=== PATIENT | female | born 1955 | race Caucasian/White ===

== ENCOUNTER → 2016-10-19 | Outpatient (CLI) | payer BC ==
[~2016-10-19] MED LIST: ACET-24 PO; ASPEC325 PO; MORP-157 PO; OXYC-57 PO; RXC5 PO
== END | disposition home or self-care (01) ==
LOC: C.PATHSPEC 12:35
PROVIDERS: ATTEND Plastic Surgery
DX: C44.90 Unspecified malignant neoplasm of skin, unspecified (principal)

== ENCOUNTER 2016-11-01 10:37 | Inpatient (IN) | payer BC ==
[2016-10-05 15:24] VITALS: BMI 32.0
[2016-10-05 16:26] LABS: BASO % 0.7 %; BASO ABS # 0.04 K/uL (0-0.2); COMPLETE YES; EOS % 2.1 %; HEMATOCRIT 38.4 % (37-47); IG% 0.2 %; LYMPH % 34.5 %; MEAN CELL VOLUME 93.4 fL (80-100); MEAN CORPUSCULAR HEMOGLOBIN 31.1 pg (25-34); MEAN CORPUSCULAR HGB CONC 33.3 g/dl (32-36); MEAN PLATELET VOLUME 9.7 fL (7.4-10.4); MONO % 8.6 %; NEUT % 53.9 %; PLATELET COUNT 181 K/uL (130-400); RED BLOOD COUNT 4.11 M/uL (4.2-5.4); WHITE BLOOD COUNT 5.79 K/uL (4.8-10.8)
[2016-10-05 16:34] LABS: BUN/CREATININE RATIO 22.8 (10-20); CALCIUM 8.7 mg/dl (8.5-10.1); CREATININE 0.76 mg/dl (0.60-1.20)
--- NOTE | 2016-10-05 16:37 | DIAGNOSTIC IMAGING REPORT ---
CHEST 2 VIEWS ROUTINE HISTORY: Preop. COMPARISON: Chest 12/08/2011. FINDINGS: The lungs are clear. Cardiac silhouette is normal in size. No pleural effusions. No pneumothorax. Right upper quadrant surgical clips consistent with a prior cholecystectomy. IMPRESSION: No acute process. Electronically signed by: Roly Casillas M.D. 10/05/2016 4:36 PM Dictated Date/Time: 10/05/2016 4:33 PM
[2016-10-05 16:49] LABS: PROTHROMBIN TIME (PATIENT) 11.1 SECONDS (9.0-12.0)
--- NOTE | 2016-10-27 10:24 | History and Physical ---
History & Physical Documentation Date Oct 27, 2016. Chief Complaint Left knee pain HPI (Knee Pain) Pain Location: Anterior knee, Lateral knee, Posterior knee Duration: Years Adversely Affecting: ADL's, Recreation Symptoms Include: + Pain, + Giving way History of Injury/Trauma: Yes ([place] accident) Non-Surgical Therapies: Behavior modification Mechanical Assistive Devices: none Joint Injection: Steroid Past Medical/Surgical History 1. Mild Obesity 2. Arthritis 3. Basal Cell skin cancer 4. Right eye surgery. Additional History Hepatic Disease: No Endocrine Disorder: No Kidney Disease: No Hypertension: No Heart Disease: No Bleeding Tendencies: No Infectious Diseases: No Family History No Heart disease, No Pulmonary disease, No Anesthesia difficulties, No Bleeding tendencies Social History Smoking Status: Former Smoker Alcohol Use: socially Drug Use: none Marital Status: Occupational Status: employed Allergies Coded Allergies: No Known Allergies (Unverified , 10/05/16) Home Medications No Active Prescriptions or Reported Meds Review of Systems Constitutional: No fever, No chills, No sweats, No weight loss, No weakness, No fatigue, No problem reported ENT: No hearing loss, No unusual epistaxis, No nasal symptoms, No sore throat, No tinnitus, No dental problems, No trouble swallowing, No problem reported Respiratory: No cough, No sputum, No wheezing, No shortness of breath, No dyspnea on exertion, No dyspnea at rest, No hemoptysis, No problem reported Cardiovascular: No chest pain, No orthopnea, No PND, No edema, No claudication , No palpitations, No problem reported Abdomen: No pain, No nausea, No vomiting, No diarrhea, No constipation, No GI bleeding, No problem reported Neurologic: No memory loss, No paralysis, No weakness, No numbness/tingling, No vertigo, No balance problems, No problem reported Physical Exam Skin: warm/dry Eyes: normal inspection ENT: normal ENT inspection Head: normocephalic Neck: supple, no adenopathy Respiratory/Chest: lungs clear Cardiovascular: regular rate, rhythm Abdomen / GI: normal bowel sounds Back: normal inspection Neurovascular: Normal perfusion, Normal sensation, Normal motor strength Neurologic/Psych: no motor/sensory deficits Physical Exam (Knee) Inspection: + Effusion Gait: + Limp Range of Motion: With crepitation (5-100 degrees) Alignment: + Genu valgum Tenderness: Lateral joint line Radiology Plain Films: Osteophytes, Subchondral sclerosis Plain Films Joint Space: [id number], Mild narrowing, Severe narrowing Diagnosis & Plan Diagnosis & Plan (1) Severe Left Knee DJD Plan: TKA (Left TKR)
[2016-11-01] VITALS (7 sets, daily range): BP systolic 105–149; BP diastolic 68–84; PULSE 55–61; TEMP 36.3–36.6; O2SAT 96–100; Ht 177.8 cm; Wt 101.4 kg
[~2016-11-01] VITALS: Ht 177.8 cm; Wt 101.4 kg
[~2016-11-01 10:37] MED LIST changes: -ACET-24 PO; +ACETAMINOPHEN 500 MG TAB PO SCH; -ASPEC325 PO; +BUPIVACAINE 0.5 % 5 MG/1 ML PF 10ML VIAL ONE; +BUPIVACAINE LIPOSOME 266 MG, BUPIVACAINE/EPINEPHRINE INJ 50 ML, SODIUM CHLORIDE 0.9% PF... INFIL SCH; +CEFAZOLIN 2000 MG/60 ML D5W 60 ML IV SCH; +FAMOTIDINE 20 MG TAB PO SCH; +GABAPENTIN 300 MG CAP PO SCH; +LACTATED RINGER'S 1000ML 1,000 ML IV SCH; +LACTATED RINGER'S 1000ML 500 ML IV ONE; +LACTATED RINGER'S 1000ML IV SCH; +METOCLOPRAMIDE HCL 10 MG TAB PO SCH; -MORP-157 PO; -OXYC-57 PO; +ROPIVACAINE 0.5% 5 MG/ML 30 ML VIAL ONE; -RXC5 PO; +TRANEXAMIC ACID INJ 1,000 MG in SODIUM CHLORIDE 0.9% 100ML 100 ML IV SCH
--- NOTE | 2016-11-01 11:17 | History & Physical Bridge Note ---
H&P Re-Evaluation Bridge Note: I have examined the patient, reviewed the History & Physical and in the interval since the performance of the History & Physical I have noted the following changes of clinical significance: No changes noted
[2016-11-01] MEDS ORDERED: OXYC-57 PO (11:18)
[2016-11-01] MEDS: SCOPOLAMINE 1.5 MG TDSY TD SCH ×2 (11:44→12:11)
[2016-11-01] MEDS ORDERED: PROPOFOL IV EMULSION 10 MG/ML 20 ML VIAL IV ONE (11:52)
[2016-11-01] MEDS ORDERED: ONDANSETRON INJ 2 MG/ML 2 ML VIAL ONE (11:53)
[2016-11-01] MEDS ORDERED: FENTANYL CITRATE INJ 50 MCG/1 ML 2 ML VIAL ONE (11:53)
[2016-11-01] MEDS ORDERED: MIDAZOLAM HCL 1 MG/ML 2ML VIAL ONE ×2 (11:53→13:49)
[2016-11-01] MEDS ORDERED: BUPIVACAINE LIPOSOME 1/3% 266 MG/20 ML VIAL INFIL ONE (13:19)
[2016-11-01] MEDS ORDERED: SODIUM CHLORIDE 0.9% PF 50 ML VIAL ONE (13:19)
[2016-11-01] MEDS ORDERED: BACITRACIN 50000 UNIT VIAL ONE (13:19)
[2016-11-01] MEDS ORDERED: BUPIVACAINE/EPINEPHRINE 0.25% 1:200,000 30 ML VIAL ONE (13:19)
--- NOTE | 2016-11-01 15:36 | [facility] Post Operative Brief Note ---
Immediate Operative Summary Operative Date Nov 01, 2016. Pre-Operative Diagnosis Severe left knee degenerative joint disease Post-Operative Diagnosis Same as preoperative diagnosis Procedure(s) Performed Left Total Knee Arthroplasty Surgeon Dr. Jass Herrera Continuing Education Dean Surgeon(s) Anoop Nieves PA-C Estimated Blood Loss 50 mL Findings Left Knee DJD Fluids (cc crystalloids) 1800 cc Specimens Permanent specimens A: Left knee bone and tissue Drains None Anesthesia Spinal Complication(s) None Disposition Recovery Room / PACU
[2016-11-01] MEDS ORDERED: ONDANSETRON INJ 2 MG/ML 2 ML VIAL IV PRN (15:45)
[2016-11-01] MEDS ORDERED: METOCLOPRAMIDE HCL INJ 5 MG/ML 2 ML VIAL IV PRN (15:45)
[2016-11-01] MEDS ORDERED: ALUMINUM/MAGNESIUM/SIMETH (MAALOX MAX) 30 ML UDC PO PRN (15:45)
[2016-11-01] MEDS ORDERED: MoRPHine SULFATE 2 MG/ML CARP IV PRN (15:45)
[2016-11-01] MEDS ORDERED: ZOLPIDEM TARTRATE 5 MG TAB PO PRN (15:45)
[2016-11-01] MEDS ORDERED: MAGNESIUM HYDROXIDE SUSP 30 ML UDC PO PRN (15:45)
[2016-11-01] MEDS ORDERED: DiphenhydrAMINE HCL 50 MG/ML VIAL IV PRN (15:45)
[2016-11-01] MEDS ORDERED: SILVER SULFADIAZINE 1% CR 50 GM JAR EXT PRN (15:45)
[2016-11-01] MEDS ORDERED: BISACODYL 10 MG SUPP PR PRN (15:45)
--- NOTE | 2016-11-01 15:59 | Anesthesiology Progress Note ---
Anesthesia Post Op Note Date & Time Nov 01, 2016 at 15:59 Vital Signs Pain Intensity: 0 Vital Signs Past 12 Hours Date Time Temp Pulse Resp B/P (MAP) Pulse Ox O2 Delivery O2 Flow Rate FiO2 11/01/16 15:50 71 16 109/68 98 Nasal Cannula 2 11/01/16 15:41 36.5 63 16 114/67 98 Oxymask 10 11/01/16 11:18 36.4 56 18 131/73 100 Room Air Notes Mental Status: alert / awake / arousable, participated in evaluation Pt Amnestic to Procedure: Yes Nausea / Vomiting: adequately controlled Pain: adequately controlled Airway Patency, RR, SpO2: stable & adequate BP & HR: stable & adequate Hydration State: stable & adequate Anesthetic Complications: no major complications apparent
[2016-11-01] MEDS ORDERED: CHECK SCOPOLAMINE PATCH PLACEMENT SCH (16:00)
--- NOTE | 2016-11-01 16:04 | DIAGNOSTIC IMAGING REPORT ---
LEFT KNEE 1 OR 2 VIEWS ROUTINE CLINICAL HISTORY: Postoperative evaluation. Left knee degenerative joint disease. COMPARISON: Left knee radiographs June 23, 2016. FINDINGS: Alignment of the total left knee arthroplasty is anatomic. There is no fracture or unexpected radiopaque foreign body. Skin palmer are present. IMPRESSION: Expected findings following total left knee arthroplasty. Electronically signed by: Shaun Medrano M.D. 11/01/2016 4:03 PM Dictated Date/Time: 11/01/2016 4:02 PM
[2016-11-01] MEDS ORDERED: NURSING VERBAL MED ORDER ONE (17:45)
[2016-11-01] MEDS: D5W AND 1/2NSS + 20MEQ KCL 1,000 ML IV SCH (18:06)
[2016-11-01] MEDS: FERROUS GLUCONATE 324 MG TAB PO SCH (18:07)
--- NOTE | 2016-11-01 18:21 | Progress Note ---
Orthopedic SOAP Note Subjective Date of Service: Nov 01, 2016. Post OP Day: Post-op Left TKR Reports: feeling well, pain controlled w PO medications Additional Notes: Just starting to feel pain. No chest pain or SOB Objective calves soft nontender, N/V intact, capillary refill less than 2 sec., dressing C /D/I, A&O x3, toes mobile, CMS intact Date Time Temp Pulse Resp B/P (MAP) Pulse Ox O2 Delivery O2 Flow Rate FiO2 11/01/16 17:29 59 18 135/84 (101) 100 Nasal Cannula 11/01/16 16:58 36.3 59 18 143/75 (97) 100 Nasal Cannula 11/01/16 16:25 Nasal Cannula 11/01/16 16:25 Nasal Cannula 2.0 11/01/16 16:25 36.3 55 18 149/84 (105) 99 Nasal Cannula 2.0 11/01/16 16:10 54 16 142/76 99 Nasal Cannula 2 11/01/16 16:00 36.4 53 16 130/76 99 Nasal Cannula 2 11/01/16 15:50 71 16 109/68 98 Nasal Cannula 2 11/01/16 15:41 36.5 63 16 114/67 98 Oxymask 10 11/01/16 11:18 36.4 56 18 131/73 100 Room Air Additional Notes: X-ray from the recovery room shows well aligned TKR. No complications. Assessment Post-op from Left TKR with significant lateral and posterolateral release. Pain controlled. She is N/V intact. Peroneal nerve is working normally. Plan 1) DVT Prophylaxis - TEDs + SCDs + ECASA 2) PT/OT - Left TKR Protocol 3) IV Antibiotics X 24 hours 4) Pain control - doing well with current regimine 5) Disposition - plan to D/C to home with home health once adequately recovered.
[2016-11-01] MEDS: OXYCODONE HCL IR 5 MG TAB (IMMEDIATE RELEASE) PO PRN ×2 (19:15→23:11)
[2016-11-01] MEDS: DOCUSATE SODIUM 100 MG CAP PO SCH (20:07)
[2016-11-01] MEDS: KETOROLAC TROMETHAMINE 30 MG/ML VIAL IV. SCH (20:07)
[2016-11-01] MEDS: SENNA 8.6 MG TAB PO SCH (20:08)
[2016-11-01] MEDS: ASPIRIN 325 MG ECTAB PO SCH (20:08)
[2016-11-01] MEDS: CEFAZOLIN IV 2,000 MG in DEXTROSE 5% 50ML 50 ML IV SCH (21:08)
[2016-11-01] MEDS: TAPENTADOL ER 50 MG TABCR PO SCH (21:08)
[2016-11-01] MEDS: ACETAMINOPHEN 500 MG TAB PO SCH (21:11)
[2016-11-01] MEDS ORDERED: TRANEXAMIC ACID INJ 1,000 MG in SODIUM CHLORIDE 0.9% 100ML 100 ML IV SCH (22:00)
[2016-11-02] VITALS (7 sets, daily range): BP systolic 94–107; BP diastolic 54–64; PULSE 54–63; TEMP 36.5–36.7; O2SAT 94–100
[2016-11-02] MEDS: D5W AND 1/2NSS + 20MEQ KCL 1,000 ML IV SCH ×3 (01:25→13:40)
[2016-11-02] MEDS: KETOROLAC TROMETHAMINE 30 MG/ML VIAL IV. SCH ×4 (01:56→19:32)
[2016-11-02] MEDS: OXYCODONE HCL IR 5 MG TAB (IMMEDIATE RELEASE) PO PRN ×4 (05:45→19:28)
[2016-11-02] MEDS: ACETAMINOPHEN 500 MG TAB PO SCH ×3 (05:45→22:01)
[2016-11-02] MEDS: CEFAZOLIN IV 2,000 MG in DEXTROSE 5% 50ML 50 ML IV SCH (05:45)
[2016-11-02 07:25] LABS: HEMATOCRIT 33.2 % (37-47); MEAN CELL VOLUME 93.8 fL (80-100); MEAN CORPUSCULAR HEMOGLOBIN 31.4 pg (25-34); MEAN CORPUSCULAR HGB CONC 33.4 g/dl (32-36); MEAN PLATELET VOLUME 9.7 fL (7.4-10.4); PLATELET COUNT 165 K/uL (130-400); RED BLOOD COUNT 3.54 M/uL (4.2-5.4); WHITE BLOOD COUNT 6.87 K/uL (4.8-10.8)
[2016-11-02 07:43] LABS: BUN/CREATININE RATIO 10.4 (10-20); CALCIUM 8.1 mg/dl (8.5-10.1); CREATININE 0.72 mg/dl (0.60-1.20); POTASSIUM 3.9 mmol/L (3.5-5.1)
--- NOTE | 2016-11-02 08:06 | Anesthesiology Progress Note ---
Anesthesia Post Op Note Date & Time Nov 02, 2016 at 08:05 Vital Signs Pain Intensity: 6.0 Vital Signs Past 12 Hours Date Time Temp Pulse Resp B/P (MAP) Pulse Ox O2 Delivery O2 Flow Rate FiO2 11/02/16 03:07 36.5 54 18 97/61 (73) 94 Room Air 11/02/16 00:00 Room Air 11/01/16 22:55 36.6 59 19 105/68 (80) 96 Room Air Notes Mental Status: alert / awake / arousable, participated in evaluation Pt Amnestic to Procedure: Yes Nausea / Vomiting: adequately controlled Pain: adequately controlled Airway Patency, RR, SpO2: stable & adequate BP & HR: stable & adequate Hydration State: stable & adequate Anesthetic Complications: no major complications apparent
--- NOTE | 2016-11-02 08:30 | Progress Note ---
Orthopedic SOAP Note Subjective Date of Service: Nov 02, 2016. Post OP Day: POD #1 - Left TKR Reports: feeling well, pain controlled w PO medications Additional Notes: No chest pain or SOB. Objective calves soft nontender, N/V intact, capillary refill less than 2 sec., dressing C /D/I, A&O x3, toes mobile, CMS intact Date Time Temp Pulse Resp B/P (MAP) Pulse Ox O2 Delivery O2 Flow Rate FiO2 11/02/16 08:13 100 Room Air 11/02/16 08:03 36.6 57 16 96/60 (72) 100 Room Air 11/02/16 07:10 Room Air 11/02/16 03:07 36.5 54 18 97/61 (73) 94 Room Air 11/02/16 00:00 Room Air 11/01/16 22:55 36.6 59 19 105/68 (80) 96 Room Air 11/01/16 19:22 36.3 61 18 123/77 (92) 97 Room Air 11/01/16 18:26 59 18 148/73 (98) 100 11/01/16 17:29 59 18 135/84 (101) 100 Nasal Cannula 11/01/16 16:58 36.3 59 18 143/75 (97) 100 Nasal Cannula 11/01/16 16:25 Nasal Cannula 11/01/16 16:25 Nasal Cannula 2.0 11/01/16 16:25 36.3 55 18 149/84 (105) 99 Nasal Cannula 2.0 11/01/16 16:10 54 16 142/76 99 Nasal Cannula 2 11/01/16 16:00 36.4 53 16 130/76 99 Nasal Cannula 2 11/01/16 15:50 71 16 109/68 98 Nasal Cannula 2 11/01/16 15:41 36.5 63 16 114/67 98 Oxymask 10 11/01/16 11:18 36.4 56 18 131/73 100 Room Air Laboratory Results 24 Hours: Test 11/02/16 07:03 Hematocrit 33.2 % Hemoglobin 11.1 g/dL Assessment Post-op from Left TKR with significant lateral and posterolateral release. Pain controlled. She is N/V intact. Peroneal nerve is working normally. Plan 1) DVT Prophylaxis - TEDs + SCDs + ECASA 2) PT/OT - Left TKR Protocol 3) IV Antibiotics X 24 hours 4) Pain control - doing well with current regimine 5) Disposition - plan to D/C to home with home health once adequately recovered.
[2016-11-02] MEDS ORDERED: ACET-24 PO (08:40)
[2016-11-02] MEDS ORDERED: ASPEC325 PO (08:40)
[2016-11-02] MEDS ORDERED: RXC5 PO (08:40)
[2016-11-02] MEDS ORDERED: MORP-157 PO (08:40)
[2016-11-02] MEDS: ASPIRIN 325 MG ECTAB PO SCH ×2 (08:41→21:17)
[2016-11-02] MEDS: FERROUS GLUCONATE 324 MG TAB PO SCH ×3 (08:41→17:52)
[2016-11-02] MEDS: PANTOprazole SOD 40 MG TAB PO SCH (08:41)
[2016-11-02] MEDS: MULTIVITAMIN TAB PO SCH (08:41)
[2016-11-02] MEDS: DOCUSATE SODIUM 100 MG CAP PO SCH ×2 (08:41→21:17)
--- NOTE | 2016-11-02 08:42 | Discharge Instructions ---
Discharge Instructions Date of Service Nov 02, 2016. Admission Reason for Admission: Left Knee Degenerative Joint Disease Discharge Discharge Diagnosis / Problem: Left Knee Replacement Discharge Goals Goal(s): Decrease discomfort, Improve function, Increase independence, Improve disease control, Therapeutic intervention Activity Recommendations Activity Limitations: per Instructions/Follow-up section Weightbearing Status: Left weightbearing . Instructions / Follow-Up Instructions / Follow-Up ACTIVITY RECOMMENDATIONS: Physical Therapy: * You will go to physical therapy three times each week for four to six weeks after your surgery in order to regain your knee range of motion and to retrain your knee to work properly. * It is just as important to make sure you are getting your knee perfectly straight as it is to regain your knee bend. * Taking a pain pill an hour before therapy can help you have a more productive and comfortable therapy session. Home Exercise: * You were shown a series of exercises (heel props, heel slides, etc.) in the hospital. Do these exercises three to four times each day including the exercises you were shown in physical therapy. Walking: * Get up and walk several times each day. For the first four weeks, try not to stand or walk for more than one hour at a time. If you do stand or walk for more than one hour, you will not hurt anything, but your knee and leg will likely swell. * As you feel comfortable, you may change from the walker or crutches to a cane and then to independent walking. MEDICATIONS: New Medicine: * You will likely be taking one or more of these medications: 1. MS Contin - A long-acting pain medication. Take 1 tablet twice a day for the first ten days to decrease your baseline level of pain. 2. Oxycodone - A quick and shorter-acting pain medication. Take one to two tablets every four to six hours to lessen your pain. 3. Aspirin - Thins your blood to lessen the chance of forming a blood clot. * The most common side effects of pain medicine and iron are nausea and constipation. If nausea or constipation is too much of a problem or if you have any questions about your new medicines or doses, call [facility] at [phone]. We will try to help you manage these issues. VERY IMPORTANT TO READ AND REVIEW" Pain: * The immediate post-operative period after knee replacement surgery is often quite painful. * You are given a prescription for pain medicine. You should take it, as directed, when you need it, especially before physical therapy and before going to bed. Pain that interferes with sleep is very common and can last several months. * You will likely need pain medicine for the first four to six weeks. It will not stop all of the pain. The pain will lessen and as you feel better, you may change to milder pain medicine such as Tylenol. * The most common side effects of pain medicine are nausea and constipation, so don't take more than you need. SPECIAL CARE INSTRUCTIONS: TEDs/Elastic Stockings: * The white elastic stockings help limit swelling and prevent blood clots from forming in your legs. The more you wear them, the more they work. * Wear them for six weeks after knee replacement surgery and four weeks after partial knee replacement. Prevention of Infection: * Take antibiotics one hour before any dental cleaning, dental work, urological procedure, gastrointestinal procedure or any invasive surgery in order to prevent your new joint from getting infected. * You may get the antibiotics from the doctor performing the procedure or you may call our office at before and we will call in a prescription to the pharmacy of your choice. Things to Watch For: * Drainage from the incision site that occurs more than one week after your surgery. * Severely increased knee/leg pain or swelling. * Increased redness at the incision site. * Fever above 102 degrees Fahrenheit. * Unusual chest pain or shortness of breath. * Unusual pain or burning with urination. Call [facility] at with any of the above problems or if you have any questions about your medicines or recovery. FOLLOW UP VISIT: Make an appointment to see your doctor for approximately two weeks after surgery for a progress check and staple removal by calling the office at . Current Hospital Diet Patient's current hospital diet: Gluten Free Diet, Low Lactose Diet, Regular Diet Discharge Diet Recommended Diet: Gluten Free Diet Procedures Procedures Performed: Left Total Knee Arthroplasty Pending Studies Studies pending at discharge: no Medical Emergencies . Who to Call and When: Medical Emergencies: If at any time you feel your situation is an emergency, please call 911 immediately. . Non-Emergent Contact Non-Emergency issues call your: Surgeon . "Provider Documentation" section prepared by Jass Herrera. . VTE Core Measure Inpt VTE Proph given/why not?: Other Anticoagulation, TJadon Padgett, SCD's
[2016-11-02] MEDS: TAPENTADOL ER 50 MG TABCR PO SCH ×2 (08:45→21:22)
[2016-11-02] MEDS ORDERED: ACETAMINOPHEN 500 MG TAB PO ONE (13:44)
[2016-11-02] MEDS: SENNA 8.6 MG TAB PO SCH (21:18)
[2016-11-03] MEDS: KETOROLAC TROMETHAMINE 30 MG/ML VIAL IV. SCH ×3 (02:10→13:52)
[2016-11-03] MEDS: ACETAMINOPHEN 500 MG TAB PO SCH ×3 (05:43→22:14)
[2016-11-03 07:30] VITALS: BP 110/58; PULSE 78; TEMP 36.6; O2SAT 98
--- NOTE | 2016-11-03 07:35 | Progress Note ---
Orthopedic SOAP Note Subjective Date of Service: Nov 03, 2016. Post OP Day: POD #2 - Left TKR. Reports: feeling well Additional Notes: Does not feel comfortable going home yet. Feels needs more therapy. Objective calves soft nontender, N/V intact, capillary refill less than 2 sec., dressing C /D/I, incision C/D/I, A&O x3, toes mobile, CMS intact Date Time Temp Pulse Resp B/P (MAP) Pulse Ox O2 Delivery O2 Flow Rate FiO2 11/03/16 00:10 Room Air 11/02/16 23:16 36.7 59 16 107/58 (74) 95 Room Air 11/02/16 19:25 Room Air 11/02/16 16:30 Room Air 11/02/16 15:50 36.7 59 18 97/62 (74) 99 Room Air 11/02/16 14:52 55 98 11/02/16 11:48 36.5 63 16 94/54 (67) 97 Room Air 11/02/16 08:13 100 Room Air 11/02/16 08:03 36.6 57 16 96/60 (72) 100 Room Air Assessment Post-op Day #2 from Left TKR with significant lateral and posterolateral release. Pain controlled. She is N/V intact. Peroneal nerve is working normally. She leon not feel ready to go home yet. We will see how therapy goes today. Plan 1) DVT Prophylaxis - TEDs + SCDs + ECASA 2) PT/OT - Left TKR Protocol 3) IV Antibiotics X 24 hours. Completed. 4) Pain control - doing well with current regimine 5) Disposition - plan to D/C to home with home health once adequately recovered.
[2016-11-03] MEDS: OXYCODONE HCL IR 5 MG TAB (IMMEDIATE RELEASE) PO PRN ×3 (07:38→16:02)
[2016-11-03] MEDS: ASPIRIN 325 MG ECTAB PO SCH ×2 (08:30→20:46)
[2016-11-03] MEDS: DOCUSATE SODIUM 100 MG CAP PO SCH ×2 (08:30→20:46)
[2016-11-03] MEDS: PANTOprazole SOD 40 MG TAB PO SCH (08:30)
[2016-11-03] MEDS: MULTIVITAMIN TAB PO SCH (08:30)
[2016-11-03] MEDS: FERROUS GLUCONATE 324 MG TAB PO SCH ×3 (08:30→17:09)
[2016-11-03] MEDS: TAPENTADOL ER 50 MG TABCR PO SCH ×2 (08:31→20:46)
[2016-11-03 10:24] VITALS: O2SAT 98
[2016-11-03 15:32] VITALS: BP 105/60; PULSE 73; TEMP 36.4; O2SAT 97
[2016-11-03] MEDS: SENNA 8.6 MG TAB PO SCH (20:46)
[2016-11-03 23:39] VITALS: BP 104/68; PULSE 62; TEMP 36.8; O2SAT 95
[2016-11-04] MEDS: OXYCODONE HCL IR 5 MG TAB (IMMEDIATE RELEASE) PO PRN ×4 (01:33→13:35)
[2016-11-04] MEDS: ACETAMINOPHEN 500 MG TAB PO SCH ×2 (05:36→13:35)
[2016-11-04 07:50] VITALS: BP 112/66; PULSE 61; TEMP 36.4; O2SAT 99
[2016-11-04] MEDS: MULTIVITAMIN TAB PO SCH (08:37)
[2016-11-04] MEDS: TAPENTADOL ER 50 MG TABCR PO SCH (08:37)
[2016-11-04] MEDS: FERROUS GLUCONATE 324 MG TAB PO SCH ×2 (08:37→12:27)
[2016-11-04] MEDS: ASPIRIN 325 MG ECTAB PO SCH (08:37)
[2016-11-04] MEDS: DOCUSATE SODIUM 100 MG CAP PO SCH (08:37)
[2016-11-04] MEDS: PANTOprazole SOD 40 MG TAB PO SCH (08:38)
--- NOTE | 2016-11-04 08:52 | Progress Note ---
Orthopedic SOAP Note Subjective Date of Service: Nov 04, 2016. Post OP Day: POD #3 - Left TKR Reports: feeling well, pain controlled w PO medications Additional Notes: Feeling better today. More confident and ready to go home. Objective calves soft nontender, N/V intact, capillary refill less than 2 sec., dressing C /D/I, incision C/D/I, A&O x3, toes mobile, CMS intact Date Time Temp Pulse Resp B/P (MAP) Pulse Ox O2 Delivery O2 Flow Rate FiO2 11/04/16 07:50 36.4 61 16 112/66 (81) 99 Room Air 11/04/16 07:20 Room Air 11/03/16 23:58 Nasal Cannula 11/03/16 23:39 36.8 62 16 104/68 (80) 95 Room Air 11/03/16 15:32 36.4 73 18 105/60 (75) 97 Room Air 11/03/16 15:20 Room Air 11/03/16 10:24 98 Room Air Assessment Post-op Day #3 from Left TKR with significant lateral and posterolateral release. Pain controlled. She is N/V intact. Peroneal nerve is working normally. She feels much better today after a couple therapy sessions yesterday. Plan 1) DVT Prophylaxis - TEDs + SCDs + ECASA 2) PT/OT - Left TKR Protocol 3) IV Antibiotics X 24 hours. Completed. 4) Pain control - doing well with current regimine 5) Disposition - plan to D/C to home with home health once adequately recovered.
[2016-11-04 11:34] VITALS: BP 112/66; PULSE 61; TEMP 36.4; O2SAT 99
--- NOTE | 2016-11-10 15:41 | DISCHARGE SUMMARY ---
ADMITTING PHYSICIAN AND SURGEON: Dr. Herrera. ADMITTING DIAGNOSIS: Left knee degenerative joint disease. SURGERY PERFORMED: Left total knee arthroplasty. SECONDARY DIAGNOSES: Mild obesity, arthritis, basal cell skin cancer, right eye surgery. CONSULTS: None obtained. HISTORY AND PHYSICAL EXAMINATION: Well documented in the patient's chart. HOSPITAL COURSE: The patient was admitted on 11/01/2016 underwent total knee arthroplasty, tolerated the procedure well. There were no complications. She was transferred to the PACU postoperatively and later to the orthopedic floor for further care. She was given Ancef for antibiotic prophylaxis, GRACY stockings, SCDs and aspirin for DVT prophylaxis. Hemoglobin, hematocrit and vital signs were monitored during her hospital stay and remained stable. She developed some mild postoperative anemia, did not require any blood transfusions. There were no complications. By postoperative day 3 she was tolerating a general diet, pain was controlled with oral pain medicine. She was participating in physical therapy and had no signs or symptoms of deep vein thrombosis. On postop day 3 she was discharged home and set home health services, given printed discharge instructions including new prescriptions for extra strength Tylenol, aspirin 325 mg b.i.d., MS Contin and oxycodone. She was instructed to stop Percocet. Continue physical therapy, weightbearing as tolerated, GRACY stockings. Follow up in 10-12 days or sooner if there are problems or concerns.
== END 2016-11-04 14:30 | disposition home health service (06) | DRG 470 ==
LOC: C.ACU 10:37 → C.MSW 10:55 → UNDOADMIN 15:40 → C.MSW 15:40 → ENRESERV 16:00
PROVIDERS: ADMIT Orthopaedic Surgery Sports Medicine; ATTEND Orthopaedic Surgery Sports Medicine
PROC: 0SRD0J9 Replacement of Left Knee Joint with Synthetic Substitute, Cemented, Open Approach (ICD-10-PCS; principal; 2016-11-01 12:30)
DX: M17.12 Unilateral primary osteoarthritis, left knee (principal); M85.862 Other specified disorders of bone density and structure, left lower leg; E66.9 Obesity, unspecified; Z85.828 Personal history of other malignant neoplasm of skin; Z87.891 Personal history of nicotine dependence; Z68.32 Body mass index [BMI] 32.0-32.9, adult

== ENCOUNTER → 2017-06-02 | Day surgery (SDC) | payer BC ==
[2017-02-27 10:47] VITALS: Ht 177.8 cm; Wt 101.4 kg
[~2017-06-02] VITALS: Ht 177.8 cm; Wt 101.4 kg
[~2017-06-02] MED LIST changes: -ACETAMINOPHEN 500 MG TAB PO SCH; +AMOXILLIN PO; -BUPIVACAINE 0.5 % 5 MG/1 ML PF 10ML VIAL ONE; -BUPIVACAINE LIPOSOME 266 MG, BUPIVACAINE/EPINEPHRINE INJ 50 ML, SODIUM CHLORIDE 0.9% PF... INFIL SCH; -CEFAZOLIN 2000 MG/60 ML D5W 60 ML IV SCH; +CEFAZOLIN 2000MG IV PUSH 10 ML IV SCH; +CHOL1000 PO; -FAMOTIDINE 20 MG TAB PO SCH; -GABAPENTIN 300 MG CAP PO SCH; -LACTATED RINGER'S 1000ML 500 ML IV ONE; -LACTATED RINGER'S 1000ML IV SCH; -METOCLOPRAMIDE HCL 10 MG TAB PO SCH; -ROPIVACAINE 0.5% 5 MG/ML 30 ML VIAL ONE; -TRANEXAMIC ACID INJ 1,000 MG in SODIUM CHLORIDE 0.9% 100ML 100 ML IV SCH
== END | disposition home or self-care (01) ==
LOC: EDSTATUS 11:00 → C.PAT 14:02
PROVIDERS: ATTEND Plastic Surgery
DX: Z01.89 Encounter for other specified special examinations (principal); Z53.09 Procedure and treatment not carried out because of other contraindication

== ENCOUNTER 2022-07-26 08:33 | Observation (INO) ==
--- NOTE | 2022-06-27 09:06 | PAT Medication Instructions ---
Medication Instructions Date of Service June 27, 2022 Home Medications Medication Instructions Recorded mometasone 0.1 % topical cream 1 applic topical BID 2 weeks #45 10/19/21 grams nitrofurantoin 100 mg PO BID #14 caps 03/28/22 monohydrate/macrocrystals 100 mg capsule (Macrobid) mometasone 0.1 % topical cream 1 applic topical BID nitrofurantoin monohydrate/macrocrystals 100 mg capsule (Macrobid) 100 mg PO BID Medical Marijuana 1 dose inhalation DIRECTED PRN Continue as directed nitrofurantoin monohydrate/macrocrystals 100 mg capsule (Macrobid) 100 mg PO BID STOP taking 24 hours before surgery mometasone 0.1 % topical cream 1 applic topical BID Medical Marijuana 1 dose inhalation DIRECTED PRN Other Notes NOTHING TO EAT OR DRINK AFTER MIDNIGHT. If you have any questions please call us at [phone] or [phone] or [phone] or [phone]
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
[~2022-07-26 08:33] MED LIST changes: +ACETAMINOPHEN 1,000 MG/100 ML VIAL IV STA; -AMOXILLIN PO; +ATROPINE SULFATE 0.1 MG/ML 10ML SYR IV PRN; +BUPIVACAINE 0.25% PF 30 ML VIAL ONE; +BUPIVACAINE 0.5 % 5 MG/1 ML PF 10ML VIAL ONE; +BUPIVACAINE LIPOSOME/PF 266 MG, BUPIVACAINE/EPINEPHRINE 50 ML, SODIUM CHLORIDE 0.9% PF ... INFIL SCH; -CEFAZOLIN 2000MG IV PUSH 10 ML IV SCH; -CHOL1000 PO; +CeleBREX 200 MG CAP PO SCH; +FAMOTIDINE 20 MG TAB PO SCH; -LACTATED RINGER'S 1000ML 1,000 ML IV SCH; +LR 500ML BOLUS, THEN 15ML/HR IV SCH; +LR 60ML/HR IV SCH; +METOCLOPRAMIDE HCL 10 MG TABLET PO SCH; +ONDANSETRON INJ 2 MG/ML 2 ML VIAL IV PRN; +ROPIVACAINE 0.5% 5 MG/ML 30 ML VIAL ONE; +Scopolamine 1 MG TDSY TD SCH; +TRANEXAMIC ACID 1,000 MG **IV Intra-op IV SCH; +ceFAZolin 2000MG 2,000 MG/15 ML SYR IV SCH; +ePHEDrine sulfate 50 MG/ML AMP IV PRN
--- NOTE | 2022-07-26 08:56 | History & Physical Bridge Note ---
Date of Service July 26, 2022 History & Physical Bridge Note I have examined the patient, reviewed the History & Physical and in the interval since the performance of the History & Physical I have noted the following changes of clinical significance: no changes noted
[2022-07-26] MEDS ORDERED: DEXAMETHASONE SOD INJ 4 MG/ML VIAL ONE ×3 (09:27→11:20)
[2022-07-26] MEDS: DEXAMETHASONE SOD INJ 4 MG/ML VIAL IV SCH ×2 (09:34→09:48)
[2022-07-26] MEDS ORDERED: MIDAZOLAM HCL 1 MG/ML 2ML VIAL ONE ×2 (09:49→10:02)
[2022-07-26] MEDS ORDERED: fentaNYL citrate PF 100 MCG/2 ML VIAL ONE ×2 (09:49→11:37)
[2022-07-26] MEDS ORDERED: LIDOCAINE 2% MPF LOCAL 5 ML VIAL ONE (09:54)
[2022-07-26] MEDS ORDERED: PROPOFOL IV EMULSION 10 MG/ML 20 ML VIAL IV ONE (09:54)
[2022-07-26] MEDS ORDERED: ONDANSETRON INJ 2 MG/ML 2 ML VIAL ONE (09:54)
[2022-07-26] MEDS ORDERED: SODIUM CHLORIDE 0.9% PF INJ 10 ML VIAL ONE (10:10)
[2022-07-26] MEDS ORDERED: BUPIVACAINE/EPINEPHRINE 0.25% 1:200,000 30 ML VIAL ONE (10:10)
[2022-07-26] MEDS ORDERED: BUPIVACAINE LIPOSOME 1.3% 266 MG/20 ML VIAL ONE (10:11)
[2022-07-26] MEDS ORDERED: KETOROLAC 30 MG/ML VIAL ONE (12:11)
--- NOTE | 2022-07-26 12:55 | Operative Report ---
PG Post Operative Report Pre & Post Diagnosis Operation Date: 07/26/22 10:40 Pre-Op Diagnosis: Right knee degenerative joint disease. Post-Op Diagnosis: Right knee degenerative joint disease. I identified the patient and participated in the time-out.: Yes Procedure Operation Date: 07/26/22 10:40 Actual Procedures p Right Total Knee Arthroplasty(Right) - Jass Herrera MD Surgeon Jass Herrera MD Gauge And Weigh Machine Operator Anoop Nieves PA-C Estimated Blood Loss 50 Findings Consistent with Post-Op Diagnosis Operative findings were advanced right knee tricompartment DJD. She had extensive grade 4 disease laterally and fairly significant for grade 4 disease of the patellofemoral joint as well as the medial femoral condyle. She had a valgus knee with a slight flexion contracture. Moderate-sized joint effusion. Specimens Right knee sent for pathology Anesthesia Type General Regional Complications none Disposition Accompanied Patient To Recovery: No Indications Patient is a 67-year-old female said a long history of knee problems. She had her left knee replaced in the past and is done well from this. She continued to be limited by progressive right knee pain discomfort describes gotten worse over time. She failed conservative measures. She elected to a total knee arthroplasty. Description of Procedure Operative implants consist of: 1 Biomet Vanguard size 70 right posterior stabilized femoral component. 2. Biomet size 71 tibial tray. 3. 10 mm posterior stabilized polyethylene insert. 4. 34 x 8 and half all poly patella. The patient was taken to the operating, identified, placed on the operating table supine position protectors were properly padded. IV antibiotics tried by anesthesia team. A general anesthetic was implemented. A Todd catheter was placed in sterile fashion. Right thigh high tourniquet was then placed in the right lower extremities then prepped and draped in usual sterile fashion. The right leg was elevated exsanguinated with use of an Esmarch and the tourniquet was placed at 300 mmHg. An anterior approach to the right knee was then performed to longitudinal incision centered over the patella. Sharp dissection was carried through subcutaneous tissue down the extensor mechanism. Medial parapatellar arthrotomy incision was made. Some subperiosteal dissection was carried out medially. The fat pad was dissected from Neath patella tendon. The lateral patellofemoral ligament was released. Patella subluxated laterally and the knee was flexed. The osteophytes were taken off distal femur. The ACL and PCL were then released from distal femur the tibia subluxated anteriorly. The external tibial alignment jig was then placed in the interface the tibia and adjusted 12 mm medially. Proximal tibial cut was made remove about 3 to 4 mm of bone from the medial side. The tibia sized to a size 71. Attention drawn the femur. The distal femur examined the sharp drill. Intramedullary canal was suction. A right 5 degree valgus cutting guide was placed. This was pinned in place. The distal femoral cut was made to take an additional 5 mm of bone off distal femur. The leg was brought out in extension and I did do some releasing of the IT band in sequential fashion to equalize the extension gap. Femur was then sized to a size 70. The AP cutting block was pinned parallel to the epicondylar axis which was 5 degrees of external rotation. Anterior cut, anterior chamfer, posterior cut, posterior chamfer cuts were made. The box cutting guide was placed in just slight lateral box cut was made. The knee was flexed. The remnants of the medial and lateral menisci were excised. The osteophytes were taken off the posterior aspect the femur. I did release the popliteus tendon in order to equalize the flexion gap. Trial femoral component was placed. The tibial tray was pinned in maximum external rotation. The drill and stem punch were used to create defect in proximal tibia for the tibial tray. Knee was then trialed and 10 mm insert fit most appropriately. Attention drawn the patella. The patella was cleaned of all soft tissues. Patella thickness measured 22 mm in thickness was cut down to 13. It was sized to a size 34 patella. The lug holes were drilled for the 34 patella. The lateral osteophyte was removed. Patella button was placed. Knee was taken through range of motion patella tracked nicely with no thumbs test. Attention drawn to place the permanent components. All trial components were removed. Bone plug was placed in the distal femur limit blood loss. Double batch Pal[place]os G cement was mixed. Biomet Vanguard size 70 right posterior stabilized femoral component, size 71 tibial tray, 10 mm posterior stabilized polyethylene insert, and a 34 x 8 and half all Paller patella then cemented in place. Knee was brought out in full extension till cement hardened. Final cement check was then performed. The pericapsular tissues were injected with total of 100 cc of combination of 20 cc of Exparel, 30 cc normal saline, 50 cc of quarter percent Marcaine with epinephrine. Patient did receive 1 g tranexamic acid. The tourniquet was then let down for final tourniquet time 53 minutes. Hemostasis assured use electrocautery. Extensor mechanism then closed with combination 1 PDS suture #1 Vicryl suture in a [id number] fashion. The extensor mechanism checked found to be intact with subcutaneous tissue then closed with 2 Dexon suture in buried interrupted fashion skin was closed skin palmer. Leg was then cleaned and dried and sterile dressing was Xeroform, 4 fours, sterile cast padding, Braulio bandage were applied. Patient was then brought out of general esthesia and transferred to the recovery room in stable condition. Patient tolerated procedure well and there were no complications. Anoop Nieves, my physician front office assistant, was present for the entire procedure. His assistance was essential and required for appropriate patient positioning, prepping and draping, surgical exposure, performing the technical details of the operation, placement the implants, closure of the wound, and placement of the sterile bandage. I attest to the content of the Intraoperative Record and any orders documented therein. Any exceptions are noted below.
[2022-07-26] MEDS: fentaNYL citrate PF 100 MCG/2 ML VIAL IV PRN ×4 (13:10→13:25)
--- NOTE | 2022-07-26 13:33 | XRay Report ---
TWO VIEWS RIGHT KNEE CLINICAL HISTORY: Postoperative examination. FINDINGS: AP and crosstable lateral portable views of the right knee are obtained. A right knee arthr oplasty is in near anatomic alignment. There has been undersurface remodeling of the patella. No acut e fracture is seen. There are expected postoperative changes around the knee including skin clips, so ft tissue edema, and subcutaneous gas. IMPRESSION: Expected postoperative changes status post right knee arthroplasty. No acute fracture is seen. ACT 112: Negative or not required by law. Electronically signed by: Alexis Gomez M.D. 07/26/2022 1:32 PM
--- NOTE | 2022-07-26 13:39 | Anesthesiology Progress Note ---
Date of Service July 26, 2022 Anesthesia Post Procedure Vital Signs Vital Signs: Temp Pulse Pulse Resp BP Pulse Ox O2 Del Method 07/26/22 13:35 36.5 C 84 16 157/78 H 99 Room Air 07/26/22 13:25 84 12 146/79 H 95 Room Air 07/26/22 13:15 93 H 20 139/88 99 Room Air 07/26/22 13:05 90 23 144/71 H 100 Oxymask 07/26/22 12:55 36.6 C 107 H 16 124/68 99 Oxymask 07/26/22 10:55 58 L 14 151/89 H 100 Oxymask 07/26/22 10:45 56 L 14 135/80 100 Oxymask 07/26/22 10:35 58 L 14 148/89 H 100 Oxymask 07/26/22 10:30 141/88 H 07/26/22 10:25 60 14 158/100 H 100 Oxymask 07/26/22 10:15 61 16 134/82 100 Oxymask 07/26/22 09:13 36.4 C L 68 18 157/71 H 96 Room Air O2 Flow Rate 07/26/22 13:35 07/26/22 13:25 07/26/22 13:15 07/26/22 13:05 5 07/26/22 12:55 5 07/26/22 10:55 5 07/26/22 10:45 5 07/26/22 10:35 5 07/26/22 10:30 07/26/22 10:25 5 07/26/22 10:15 5 07/26/22 09:13 Pain Intensity Right Knee: Pain Intensity: 3 Transfer of Care Handoff Completed per policy Notes Mental Status: alert / awake / arousable Patient Amnestic to Procedure: Yes Nausea / Vomiting: adequately controlled Pain: adequately controlled Airway Patency, RR, SpO2: stable & adequate BP & HR: stable & adequate Hydration State: stable & adequate Neuraxial Anesthesia: was administered and sensory block is resolving Anesthetic Complications: no major complications apparent and Pt Satisfied with anesthetic care
[2022-07-26] MEDS ORDERED: ONDANSETRON INJ 2 MG/ML 2 ML VIAL IV PRN (14:12)
[2022-07-26] MEDS ORDERED: bisacodyL 10 MG SUPP PR PRN (14:12)
[2022-07-26] MEDS ORDERED: NON-FORMULARY MEDICATION (Medical Marijuana 1 EA) INH PRN (14:12)
[2022-07-26] MEDS ORDERED: MAGNESIUM HYDROXIDE SUSP 30 ML UDC PO PRN (14:12)
[2022-07-26] MEDS ORDERED: HYDROmorphone INJ 0.5 MG/0.5 ML SYR IV PRN (14:12)
[2022-07-26] MEDS ORDERED: METOCLOPRAMIDE HCL INJ 5 MG/ML 2 ML VIAL IV PRN (14:12)
[2022-07-26] MEDS ORDERED: NALOXONE HCL 0.4 MG/1 ML VIAL/CARP IV PRN (14:12)
[2022-07-26] MEDS ORDERED: ALUMINUM/MAGNESIUM SUSP 30 ML UDC PO PRN (14:12)
[2022-07-26] MEDS: ACETAMINOPHEN 500 MG TAB PO SCH ×2 (15:58→20:07)
[2022-07-26] MEDS: oxyCODONE HCL IR 5 MG TAB (IMMEDIATE RELEASE) PO PRN ×2 (15:58→22:17)
[2022-07-26] MEDS: SODIUM CHLORIDE 0.9% 1000ML 1,000 ML IV SCH (16:00)
[2022-07-26] MEDS: Scopolamine CHECK PATCH PLACEMENT SCH ×2 (16:15→23:16)
[2022-07-26] MEDS: ASCORBIC ACID 500 MG TAB PO SCH (17:23)
[2022-07-26] MEDS: KETOROLAC TROMETHAMINE 15 MG/ML VIAL IV SCH ×2 (17:24→23:15)
[2022-07-26] MEDS ORDERED: TRANEXAMIC ACID / 0.7% NACL 1,000 MG/100 ML BAG IV SCH (19:00)
[2022-07-26] MEDS: ceFAZolin 2000MG 2,000 MG/15 ML SYR IV SCH (19:59)
[2022-07-26] MEDS: MOMETASONE FUROATE 0.1% CR 15 GM TUBE EXT SCH (20:07)
[2022-07-26] MEDS: ASPIRIN 81 MG ECTAB PO SCH (20:08)
[2022-07-26] MEDS: DOCUSATE SODIUM 100 MG CAP PO SCH (20:09)
[2022-07-26] MEDS ORDERED: SENNA 8.6 MG TAB PO SCH ×2 (21:00)
[2022-07-27] MEDS: SODIUM CHLORIDE 0.9% 1000ML 1,000 ML IV SCH (01:30)
[2022-07-27] MEDS: ceFAZolin 2000MG 2,000 MG/15 ML SYR IV SCH (03:14)
[2022-07-27] MEDS: KETOROLAC TROMETHAMINE 15 MG/ML VIAL IV SCH ×2 (05:54→11:53)
[2022-07-27] MEDS: oxyCODONE HCL IR 5 MG TAB (IMMEDIATE RELEASE) PO PRN ×2 (05:57→11:52)
[2022-07-27 06:54] LABS: Hematocrit (blood only) 31.5 % (37.0-47.0); Hemoglobin 10.7 g/dl (12.0-16.0); Mean Corpuscular Hemoglobin 31.4 pg (25.0-34.0); Mean Corpuscular Volume 92.4 fL (80.0-100.0); Mean Platelet Volume 10.7 fL (9.4-12.4); Platelet Count 185 K/uL (130-400); RDW Coefficient of Variation 13.2 % (11.5-14.5); RDW Standard Deviation 45.2 fL (36.4-46.3); Red Blood Count 3.41 M/uL (4.20-5.40); White Blood Count 10.71 K/ul (4.8-10.8)
[2022-07-27 07:17] LABS: BUN Creatinine Ratio 22.4 (10-20); Calcium 8.2 mg/dl (8.6-10.3); Creatinine Clr Calc Pharmacy 146.7 ml/min; Est GFR (African American) 117.7 ml/min; Est GFR (Non-African American) 101.5 ml/min; Potassium 4.3 mmol/L (3.5-5.1)
[2022-07-27] MEDS: ASCORBIC ACID 500 MG TAB PO SCH (07:28)
[2022-07-27] MEDS: ACETAMINOPHEN 500 MG TAB PO SCH ×2 (07:28→13:11)
[2022-07-27] MEDS: ASPIRIN 81 MG ECTAB PO SCH (07:29)
[2022-07-27] MEDS: Scopolamine CHECK PATCH PLACEMENT SCH (07:29)
[2022-07-27] MEDS: MOMETASONE FUROATE 0.1% CR 15 GM TUBE EXT SCH (07:30)
[2022-07-27] MEDS: DOCUSATE SODIUM 100 MG CAP PO SCH (07:30)
[2022-07-27] MEDS ORDERED: dexAMETHasone 10 MG in SYRINGE 0 ML IV SCH (08:00)
[2022-07-27] MEDS ORDERED: predniSONE 20 MG TAB PO SCH (09:00)
[2022-07-27] MEDS ORDERED: MULTIVITAMIN TAB PO SCH (09:00)
--- NOTE | 2022-07-27 14:01 | Progress Notes ---
DATE OF SERVICE: 07/27/2022 SUBJECTIVE: A 67-year-old white female postoperative day 1 from right knee replacement. She is doin g quite well. Her pain has been very well controlled. Therapy went well. No chest pain or shortnes s of breath. Not feeling dizzy or lightheaded. Hoping to go home. OBJECTIVE: VITAL SIGNS: Temperature 36.8. Vital signs are stable. PHYSICAL EXAMINATION: GENERAL: Shows a pleasant middle-aged female. She is sitting up in bed and looks quite comfortable. LUNGS: Clear to auscultation. HEART: Regular rate and rhythm. ABDOMEN: Soft, nontender, nondistended. EXTREMITIES: Grossly neurovascularly intact except as follows: Examination of the right leg reveals the dressing to be clean, dry and intact. She can dorsiflex and plantarflex her foot appropriately. She can do a good straight leg raise. LABORATORY DATA: Hemoglobin 10.7. Hematocrit 31.5. Electrolytes are stable. ASSESSMENT: A 67-year-old white female postoperative day 1 from a right knee replacement, doing pret ty well. Pain is controlled. She is neurologically intact. She is hoping to go home. PLAN: 1. DVT prophylaxis includes thigh-high TEDs, SCDs, and aspirin twice a day. 2. PT/OT, weightbear as tolerated. Right total knee protocol. 3. Pain control, doing okay with current pain regimen. 4. Disposition: Plan to discharge her home with some home health likely today. Job ID: [id number]
== END 2022-07-27 13:40 | disposition home health service (06) ==
LOC: ASU 08:33 → 3E 08:33